=== PATIENT | male | born 1950 | race African-American/Black ===

== ENCOUNTER → 2017-04-01 | Outpatient (CLI) | payer OTHER ==
--- NOTE | ~2017-04-01 | EE ---
Unit #: [id number] #: [id number] Patient: ADONIS NIÑO [id number] [address] [place], [place] [address] [id number] MR#: [id number] NAME: ADONIS NIÑO : 1950 SEX: M STUDY DATE/TIME: 04/01/2017 UNIT: CEEG ROOM: STUDY DESCRIPTION: Attending Physician: Augustina Hernandez M.D. Referring Physician: Augustina Hernandez M.D. Primary Care Physician: Emili Friedman M.D. NEURODIAGNOSTICS REPORT EXAM EEG. REASON FOR STUDY Seizures. TECH Ele. TECHNICAL INFORMATION This is a routine EEG performed using the standard international 10/20 system with electrode placement. Photic stimulation was performed. Hyperventilation was also performed. REPORT Throughout the entire study, the best background rhythm seen is approximately 10-11 Hz. This rhythm is seen in both posterior head regions symmetrically and does attenuate to eye opening and closure. Hyperventilation was performed which failed to reproduce any abnormal buildup. Photic stimulation was also performed which did not appear to elicit any epileptiform abnormalities; however, a good photic driving response was seen. Sleep was recorded, noted by K complexes and vertex waves. Some sleep spindles were also noted. Throughout the entire study, there were no electrocardiographic seizures recorded nor were there any independent epileptiform abnormalities seen. INTERPRETATION This is a normal awake and asleep EEG. A normal EEG does not rule out the possibility of seizure disorder. Clinical correlation is advised. Dictated by... Gilbert Sarah II., M.D. GWS/jessica TD: 04/09/2017 11:58 JOB #: [id number] Unit #: [id number] #: [id number] Patient: ADONIS NIÑO NEURODIAGNOSTICS REPORT Page 1 of 1 X NEURODIAGNOSTICS REPORT
== END | disposition home or self-care (01) ==
LOC: CEEG 03-29 09:30
DX: R55 Syncope and collapse (principal)
CPT/HCPCS: 95816